=== PATIENT | male | born 1975 | race Caucasian/White ===

== ENCOUNTER 2024-11-17 16:29 | Emergency (ER) | payer OTHER ==
[~2024-11-17] VITALS: Ht 177.8 cm; Wt 77.1 kg
[2024-11-17] MEDS ORDERED: ondansetron HCL 4 MG/2 ML VIAL IV PRN (17:15)
[2024-11-17] MEDS ORDERED: KETOROLAC TROMETHAMINE 15 MG/ML VIAL IV ONE (17:15)
[2024-11-17 17:22] LABS: BILIRUBIN, URINE NEGATIVE (negative); BLOOD/HGB, URINE SMALL (Negative); KETONE, URINE >=80 (Negative); LEUK ESTERASE, URINE NEGATIVE (negative); NITRITE, URINE NEGATIVE (negative); PH, URINE 6.5 (5-7)
[2024-11-17 17:30] LABS: EPITHELIAL CELLS, URINE SQUAMOUS 1+ /lpf (0-1+)
[2024-11-17 17:31] LABS: BACTERIA, URINE NONE SEEN /hpf (negative); CASTS, URINE NONE SEEN \\lpf; COLLECTION TYPE, URINE CLEAN CATCH; CRYSTALS, URINE NONE SEEN (0-1+); REFLEX CULTURE, URINE No (No)
[2024-11-17 18:19] LABS: BASOPHILS 0.2 % (0-2); EOSINOPHILS 0.1 % (0-6); HEMATOCRIT 48.8 % (35.0-50.0); HEMOGLOBIN 16.5 g/dL (12.0-18.0); LYMPHOCYTES 8.8 % (24-44); MCH 30.6 (27-36); MCHC 33.9 g/dl (30-36); MCV 90.3 fl (81-99); MONOCYTES 3.5 % (0-12); NEUTROPHILS 87.4 % (39-80); PLATELET COUNT 232 K/uL (140-440); RDW 13.6 (10.5-15.0)
[2024-11-17 18:30] LABS: ALBUMIN/GLOBULIN RATIO 1.25 (1.1-2.4); ANION GAP 18.9 (7-21); BILIRUBIN, TOTAL 0.8 ng/dL (0.2-1.0); BUN/CREATININE RATIO 17.05 (6.0-28.6); CALCIUM 10.1 mg/dL (8.5-10.1); CREATININE, SERUM 1.29 mg/dL (0.70-1.30); POTASSIUM 3.9 mmol/L (3.5-5.1)
[2024-11-17] MEDS ORDERED: LACTATED RINGER'S 1,000 ML IV ONE (19:15)
[2024-11-17] MEDS ORDERED: FAMOTIDINE 20 MG/ 2 ML VIAL IV ONE (19:15)
[2024-11-17] MEDS ORDERED: TAMSULOSIN HCL 0.4 MG CAP PO ONE ×2 (20:00→23:00)
[2024-11-17] MEDS ORDERED: droPERidol 5 MG/2 ML VIAL IV ONE (20:45)
[2024-11-17] MEDS ORDERED: METOCLOPRAMIDE HCL 10 MG/2 ML SDV IV ONE (21:30)
[2024-11-17] MEDS ORDERED: ONDANSETRON ODT4 MG PO (23:14)
[2024-11-17] MEDS ORDERED: KETOROLAC TROME10 MG PO (23:14)
[2024-11-17] MEDS ORDERED: FLOMAX0.4 MG PO (23:14)
[2024-11-17] MEDS ORDERED: ONDANSETRON 4 MG HOME.PACK SL ONE (23:15)
[2024-11-17 23:32] VITALS: BP 124/76
== END 2024-11-17 23:32 | disposition home or self-care (01) ==
LOC: ED 16:29
PROVIDERS: Emergency Medicine
DX: N13.2 Hydronephrosis with renal and ureteral calculous obstruction (principal); Z88.5 Allergy status to narcotic agent; Z87.442 Personal history of urinary calculi
CPT/HCPCS: 36415; 74176; 80053; 81001; 85025; 96374; 96375; 96376; 99284-25; A9270; J1790; J1885; J2405; J2765; J7121